=== PATIENT | female | born 1970 | race Caucasian/White ===

== ENCOUNTER 2020-09-17 06:26 | Day surgery (SDC) | payer BC ==
[~2020-09-17] VITALS: Ht 170.2 cm; Wt 57.5 kg
[2020-09-17 07:09] VITALS: BP 103/74; PULSE 64; TEMP 99.1
[2020-09-17] MEDS ORDERED: ZOVIRAX400 MG PO ×2 (07:20→08:28)
[2020-09-17 08:40] VITALS: BP 104/52; PULSE 63; TEMP 96.9
--- NOTE | 2020-09-17 08:40 | NUR ---
0840-Patient arrives back to [facility] [place] [facility] Waggoner. Ambulated with standby assistance from cart to recliner and she did well. Spouse at bedside with her. Connected to monitors and vitals are stable. SPO2 is 100% on room air. Abdomen is soft and non-distended. She denies having any nausea or pain at this time. Warm blanket given for comfort. Call byrne is in reach and instructions given on usage. 0845-Given grape juice and blueberry muffin per request.
[2020-09-17 08:55] VITALS: BP 93/60; PULSE 65
--- NOTE | 2020-09-17 08:55 | NUR ---
0855-Patient continues doing well and vitals are stable. She tolerated juice and muffin without any difficulty. Continues to deny any pain or nausea. Dr. Waggoner spoke with patient's spouse regarding procedure findings while patient was still in recovery bay and he updated the patient. She denies having any questions or concerns at this time.
[2020-09-17 09:10] VITALS: BP 107/64; PULSE 66; TEMP 98.6
--- NOTE | 2020-09-17 09:10 | NUR ---
09-Patient continues doing well and reports she is ready for discharge home. Vitals remain stable. IV dc'd from her right hand. Tip of catheter intact. Cotton ball and tape applied. No active bleeding noted. Patient is getting dressed for dc home. Will prepare discharge instructions. 924-Discussed discharge instructions with patient and her spouse. Copy of instructions given to them to take home. Both verbalized understanding and deny having any further questions or concerns at this time. Assisted her into wheelchair and taken to [facility]. 929-Assisted into private car with her spouse. Belongings and discharge instructions given to her.
== END 2020-09-17 09:30 | disposition home or self-care (01) ==
LOC: SDCO 06:26
DX: Z12.11 Encounter for screening for malignant neoplasm of colon (principal); E78.5 Hyperlipidemia, unspecified; G47.00 Insomnia, unspecified; Z87.891 Personal history of nicotine dependence; Z20.822 Contact with and (suspected) exposure to COVID-19; Z79.899 Other long term (current) drug therapy
CPT/HCPCS: J2704; J7120

== ENCOUNTER → 2020-10-29 | Outpatient (CLI) | payer BC ==
[~2020-10-29] MED LIST: ZOVIRAX400 MG PO
== END ==
LOC: MC.RAD 14:18
DX: Z12.31 Encounter for screening mammogram for malignant neoplasm of breast (principal); Z98.82 Breast implant status

== ENCOUNTER → 2021-10-29 | Outpatient (CLI) | payer BC | LOC: MC.RAD 14:02 | DX: Z12.31 Encounter for screening mammogram for malignant neoplasm of breast (principal) ==